=== PATIENT | female | born 1975 ===

== ENCOUNTER 2018-05-23 07:19 | Outpatient (CLI) | payer OTHER | END 2018-05-23 07:39 | disposition home or self-care (01) | LOC: TOM 07:19 | DX: I31.8 Other specified diseases of pericardium (principal) ==

== ENCOUNTER 2020-09-06 10:37 | Outpatient (CLI) | payer OTHER | END 2020-09-06 13:49 | disposition home or self-care (01) | LOC: TOM 10:37 | PROVIDERS: ATTEND Family Medicine | DX: Z12.31 Encounter for screening mammogram for malignant neoplasm of breast (principal); Q24.8 Other specified congenital malformations of heart; N64.4 Mastodynia; N63.10 Unspecified lump in the right breast, unspecified quadrant; N63.20 Unspecified lump in the left breast, unspecified quadrant ==

== ENCOUNTER → 2021-09-30 | Outpatient (CLI) | payer OTHER | END | disposition home or self-care (01) | LOC: MAMO-SONO 09:49 | PROVIDERS: ATTEND Obstetrics & Gynecology | DX: Q51.818 Other congenital malformations of uterus (principal); R92.1 Mammographic calcification found on diagnostic imaging of breast; N64.59 Other signs and symptoms in breast; Z12.31 Encounter for screening mammogram for malignant neoplasm of breast ==

== ENCOUNTER 2022-01-12 14:55 | Outpatient (CLI) | payer OTHER | END 2022-01-12 15:18 | disposition home or self-care (01) | LOC: TOM 14:55 | PROVIDERS: ATTEND Internal Medicine Cardiovascular Disease | DX: Q24.8 Other specified congenital malformations of heart (principal); I10 Essential (primary) hypertension ==

== ENCOUNTER 2023-09-07 07:58 | Outpatient (CLI) | payer OTHER | END 2023-09-07 08:22 | disposition home or self-care (01) | LOC: MAMO-SONO 07:58 | PROVIDERS: ATTEND Internal Medicine Pulmonary Disease | DX: R06.02 Shortness of breath (principal); U09.9 Post COVID-19 condition, unspecified; N60.09 Solitary cyst of unspecified breast; Z12.31 Encounter for screening mammogram for malignant neoplasm of breast ==

== ENCOUNTER 2023-10-18 10:18 | Outpatient (CLI) | payer OTHER | END 2023-10-18 10:30 | disposition home or self-care (01) | LOC: SONOGRAMA 10:18 | PROVIDERS: ATTEND Obstetrics & Gynecology | DX: N91.1 Secondary amenorrhea (principal) ==

== ENCOUNTER 2025-10-05 10:27 | Outpatient (CLI) | payer OTHER | END 2025-10-05 10:29 | disposition home or self-care (01) | LOC: TOM 10:27 | DX: I31.8 Other specified diseases of pericardium (principal); I10 Essential (primary) hypertension ==